=== PATIENT | male | born 1975 | race Hispanic/Latino ===

== ENCOUNTER 2021-04-09 05:29 | Emergency (ER) | payer OTHER ==
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
[2021-04-09 09:50] VITALS: BP 130/78
--- NOTE | 2021-04-13 09:07 | Electrocardiograph Report ---
[facility] Test Date: 2021-04-09 Test Time: 09:05:59 Pat Name: ROSELYN CHAUDHRY Department: Room: Gender: M Accounting Officer: STFEANY : 1975 Requested By: DENG RENE Order Number: [id number] Reading MD: Abimael Parry Measurements Intervals Bricelyn Rate: 112 P: 31 OR: 172 QRS: -11 QRSD: 90 T: 54 QT: 321 QTc: 438 Interpretive Statements Sinus tachycardia No previous ECG available for comparison Electronically Signed On 04-13-2021 9:06:51 EDT by Abimael Parry
== END 2021-04-09 09:57 | disposition home or self-care (01) ==
LOC: ED 05:29
DX: S20.219A Contusion of unspecified front wall of thorax, initial encounter (principal); S80.01XA Contusion of right knee, initial encounter; F10.10 Alcohol abuse, uncomplicated; R51.9 Headache, unspecified; Z98.890 Other specified postprocedural states; Z79.1 Long term (current) use of non-steroidal anti-inflammatories (NSAID); V89.2XXA Person injured in unspecified motor-vehicle accident, traffic, initial encounter; Y93.89 Activity, other specified; Y92.410 Unspecified street and highway as the place of occurrence of the external cause; Y99.8 Other external cause status
CPT/HCPCS: 70450; 71045; 72131; 93005

== ENCOUNTER 2022-03-04 22:15 | Emergency (ER) | payer OTHER ==
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
[2022-03-04 23:03] VITALS: BP 128/94
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
[2022-03-04] MEDS ORDERED: KETOROLAC 30 MG/1 ML INJ IV ONE (23:39)
[2022-03-04] MEDS ORDERED: HYDROmorphone 0.5 MG/0.5 ML INJ IV ONE (23:42)
== END 2022-03-04 23:59 ==
LOC: ED 22:15
DX: S43.401A Unspecified sprain of right shoulder joint, initial encounter (principal); Z98.890 Other specified postprocedural states; W19.XXXA Unspecified fall, initial encounter; Y93.89 Activity, other specified; Y92.89 Other specified places as the place of occurrence of the external cause; Y99.8 Other external cause status
CPT/HCPCS: 73030; 96374; 96375; 99284; J1885